=== PATIENT | male | born 1975 | race Caucasian/White ===

== ENCOUNTER 2018-01-11 09:15 | Inpatient (IN) | payer MEDICAID ==
[~2018-01-11] VITALS: Ht 177.8 cm; Wt 122.8 kg
[2018-01-11] MEDS ORDERED: SODIUM CHLORIDE 0.9% 1,000 ML IV ONE (09:45)
[2018-01-11] MEDS ORDERED: SODIUM CHLORIDE 0.9% 1,000ML IVBOLUS ONE (10:00)
[2018-01-11] MEDS ORDERED: ONDANSETRON 2MG/ML, 2ML IVPush ONE (10:00)
[2018-01-11] MEDS ORDERED: FAMOTIDINE 20 MG/2 ML IVP ONE (10:00)
[2018-01-11 10:37] LABS: BASOPHILS # (AUTO) 0.08 x10^3/uL (0-0.1); BASOPHILS % (AUTO) 1 % (0-1); EOSINOPHILS # (AUTO) 0.14 x10^3/uL (0-0.4); EOSINOPHILS % (AUTO) 1 % (1-7); LYMPHOCYTES # (AUTO) 1.55 x10^3/uL (1-3.4); LYMPHOCYTES % (AUTO) 13 % (22-44); MD NO; MEAN CORPUSCULAR HEMOGLOBIN 28.3 pg (27.5-34.5); MEAN CORPUSCULAR VOLUME 83.2 fL (81-97); MEAN PLATELET VOLUME 8.2 fL (7.4-10.4); MONOCYTES # (AUTO) 0.87 x10^3/uL (0.2-0.8); MONOCYTES % (AUTO) 7 % (2-9); NEUTROPHILS # (AUTO) 9.79 x10^3/uL (1.8-6.8); NEUTROPHILS % (AUTO) 79 % (42-75); PLATELET COUNT 337 x10^3/uL (130-400); RED BLOOD COUNT 5.24 x10^6/uL (4.38-5.82); RED CELL DISTRIBUTION WIDTH 14.8 % (9.4-14.8)
[2018-01-11] MEDS ORDERED: MORPHINE SULFATE 4 MG/ML, 1ML ONE ×2 (10:37→12:32)
[2018-01-11] MEDS ORDERED: ONDANSETRON 2MG/ML, 2ML ONE ×4 (10:37→18:10)
[2018-01-11] MEDS ORDERED: FAMOTIDINE 20 MG/2 ML ONE (10:37)
[2018-01-11 10:44] LABS: ALANINE AMINOTRANSFERASE 25 U/L (12-78); ALBUMIN 3.8 g/dL (3.4-5.0); ANION GAP 9 mmol/L (5-15); CALCIUM 9.4 mg/dL (8.5-10.1); CHLORIDE 103 mmol/L (98-107); CREATININE 0.97 mg/dL (0.7-1.3)
[2018-01-11 10:47] LABS: ALKALINE PHOSPHATASE 102 U/L (45-117); BILIRUBIN,TOTAL 0.8 mg/dL (0.2-1.0); TOTAL PROTEIN 8.4 g/dL (6.4-8.2)
[2018-01-11] MEDS: MORPHINE SULFATE 4 MG/ML, 1ML IVPush PRN ×2 (11:07→12:39)
[2018-01-11] MEDS ORDERED: OMNIPAQUE 350 MG/ML, 150 ML BOTTLE ONE (11:39)
[2018-01-11] MEDS ORDERED: METRONIDAZOLE PMX 500MG/100ML 100 ML IV ONE (12:00)
[2018-01-11] MEDS ORDERED: CEFOTETAN PMX 2GM/50ML 50 ML IV ONE (12:30)
[2018-01-11] MEDS ORDERED: ADAL40PE SQ-VACC (12:58)
[2018-01-11] MEDS ORDERED: METRONIDAZOLE PMX 500MG/100ML 100 ML ONE (13:30)
[2018-01-11] MEDS ORDERED: EPINEPHRINE 1 MG/ML, 1ML ONE (14:20)
[2018-01-11] MEDS ORDERED: BUPIVACAINE/PF 0.5% ONE (14:20)
[2018-01-11] MEDS ORDERED: FENTANYL PF 250 MCG/5ML ONE (14:35)
[2018-01-11] MEDS ORDERED: MIDAZOLAM 1 MG/ML, 2ML ONE (14:35)
[2018-01-11] MEDS ORDERED: PROPOFOL 10 MG/ML, 20ML ONE (15:09)
[2018-01-11] MEDS ORDERED: SUCCINYLCHOLINE 20 MG/ML, 10ML ONE (15:09)
[2018-01-11] MEDS ORDERED: ROCURONIUM 10 MG/ML,10ML ONE (15:09)
[2018-01-11] MEDS ORDERED: DEXAMETHASONE 4 MG/ML, 1ML ONE ×2 (15:09)
[2018-01-11] MEDS ORDERED: KETOROLAC 30 MG/1 ML ONE (15:10)
[2018-01-11] MEDS ORDERED: KETAMINE 10 MG/ML, 20ML ONE (15:13)
[2018-01-11] MEDS ORDERED: HYDROmorphone 2 MG/ML, 1ML ONE (15:21)
[2018-01-11] MEDS ORDERED: ACETAMINOPHEN 325 MG TABLET PO PRN ×2 (15:30→20:00)
[2018-01-11] MEDS ORDERED: FENTANYL PF 100 MCG/2ML IV PRN (15:30)
[2018-01-11] MEDS ORDERED: ALBUTEROL SULFATE 2.5 MG/3 ML NPPB PRN (15:30)
[2018-01-11] MEDS ORDERED: HYDROmorphone 1 MG/ML, 1ML IV PRN (15:30)
[2018-01-11] MEDS ORDERED: LABETALOL 5MG/ML, 20ML IV PRN (15:30)
[2018-01-11] MEDS ORDERED: hydrALAzine 20 MG/ML, 1ML IV PRN (15:30)
[2018-01-11] MEDS ORDERED: MEPERIDINE/PF 25MG/0.5ML IVPush PRN (15:30)
[2018-01-11] MEDS ORDERED: PROMETHAZINE 12.5 MG SUPP PR PRN (15:30)
[2018-01-11] MEDS ORDERED: ONDANSETRON 2MG/ML, 2ML IVPush PRN (15:30)
[2018-01-11] MEDS ORDERED: OXYcodone 5 MG/5 ML ORAL.SOL UDC PO PRN (15:30)
[2018-01-11] MEDS ORDERED: NEOSTIGMINE 1 MG/ML, 10ML ONE (16:04)
[2018-01-11] MEDS ORDERED: GLYCOPYRROLATE 0.2MG/1ML, 5ML ONE (16:04)
[2018-01-11] MEDS ORDERED: METOPROLOL 1 MG/ML, 5ML ONE (16:22)
[2018-01-11] MEDS ORDERED: FENTANYL PF 100 MCG/2ML ONE ×2 (17:44→18:10)
[2018-01-11] MEDS ORDERED: ACETAMINOPHEN 650 MG/20.3 ML UDC ONE (18:10)
[2018-01-11] MEDS ORDERED: OXYcodone 5 MG/5 ML ORAL.SOL UDC ONE (18:10)
[2018-01-11] MEDS ORDERED: DIPHENHYDRAMINE 50 MG/ML, 1ML IV PRN (20:00)
[2018-01-11] MEDS: POTASSIUM CHLORIDE 20 MEQ in D5%-0.45% NACL 1,000 ML IV SCH (20:00)
[2018-01-11] MEDS ORDERED: ACETAMINOPHEN 650 MG SUPP PR PRN (20:00)
[2018-01-11] MEDS ORDERED: ONDANSETRON 2MG/ML, 2ML IV PRN (20:00)
[2018-01-11] MEDS ORDERED: DIPHENHYDRAMINE 25 MG CAPSULE PO PRN (20:00)
[2018-01-11] MEDS: LABETALOL 5MG/ML, 20ML IVPush SCH (20:30)
[2018-01-11] MEDS: CEFOTETAN PMX 1GM/50ML 50 ML IVPB SCH (21:00)
[2018-01-11] MEDS: morphine SULFATE 10 MG/ML, 1ML IV PRN ×2 (21:34→23:29)
[2018-01-12] MEDS: METRONIDAZOLE PMX 500MG/100ML 100 ML IVPB SCH ×2 (00:22→08:01)
[2018-01-12] MEDS: KETOROLAC 30 MG/1 ML IV PRN ×2 (00:22→20:24)
[2018-01-12] MEDS: morphine SULFATE 10 MG/ML, 1ML IV PRN ×6 (01:30→20:55)
[2018-01-12] MEDS: CEFOTETAN PMX 1GM/50ML 50 ML IVPB SCH (01:39)
[2018-01-12] MEDS: POTASSIUM CHLORIDE 20 MEQ in D5%-0.45% NACL 1,000 ML IV SCH ×4 (04:05→23:05)
[2018-01-12] MEDS: LABETALOL 5MG/ML, 20ML IVPush SCH ×2 (04:30→12:30)
[2018-01-12 04:34] VITALS: BP 107/67
[2018-01-12 05:45] LABS: ALBUMIN 2.7 g/dL (3.4-5.0); ANION GAP 7 mmol/L (5-15); CALCIUM 8.1 mg/dL (8.5-10.1); CHLORIDE 106 mmol/L (98-107); CREATININE 1.08 mg/dL (0.7-1.3)
[2018-01-12 05:46] LABS: BASOPHILS # (AUTO) 0.03 x10^3/uL (0-0.1); BASOPHILS % (AUTO) 0 % (0-1); EOSINOPHILS % (AUTO) 0 % (1-7); LYMPHOCYTES # (AUTO) 0.84 x10^3/uL (1-3.4); LYMPHOCYTES % (AUTO) 7 % (22-44); MD NO; MEAN CORPUSCULAR HEMOGLOBIN 28.1 pg (27.5-34.5); MEAN CORPUSCULAR HGB CONC 33.2 g/dL (33.2-36.2); MEAN CORPUSCULAR VOLUME 84.7 fL (81-97); MEAN PLATELET VOLUME 8.4 fL (7.4-10.4); MONOCYTES # (AUTO) 0.92 x10^3/uL (0.2-0.8); MONOCYTES % (AUTO) 8 % (2-9); NEUTROPHILS # (AUTO) 10.05 x10^3/uL (1.8-6.8); NEUTROPHILS % (AUTO) 85 % (42-75); PLATELET COUNT 284 x10^3/uL (130-400); RED BLOOD COUNT 4.35 x10^6/uL (4.38-5.82); RED CELL DISTRIBUTION WIDTH 14.7 % (9.4-14.8)
[2018-01-12] MEDS: HEPARIN 5,000 UNITS/ML, 1ML SQ SCH ×2 (06:53→15:04)
[2018-01-12] MEDS ORDERED: MORPHINE SULFATE 4 MG/ML, 1ML ONE ×2 (07:58→11:56)
[2018-01-12 08:16] VITALS: BP 107/61
[2018-01-12 13:51] VITALS: BP 102/65
[2018-01-12] MEDS ORDERED: CEFOTETAN PMX 1GM/50ML 50 ML IVPB SCH (14:30)
[2018-01-12 18:55] VITALS: BP 120/75
[2018-01-12] MEDS ORDERED: LABETALOL 5MG/ML, 20ML IVPush PRN (20:30)
[2018-01-13] MEDS: HEPARIN 5,000 UNITS/ML, 1ML SQ SCH ×3 (00:16→16:12)
[2018-01-13] MEDS: KETOROLAC 30 MG/1 ML IV PRN (04:27)
[2018-01-13 05:35] VITALS: BP 108/71
[2018-01-13] MEDS: POTASSIUM CHLORIDE 20 MEQ in D5%-0.45% NACL 1,000 ML IV SCH ×3 (07:10→23:19)
[2018-01-13 08:00] VITALS: BP 112/74
[2018-01-13 08:12] VITALS: BP 100/64
[2018-01-13 14:30] VITALS: BP 109/74
[2018-01-13] MEDS ORDERED: MAGNESIUM HYDROXIDE 8%, 30ML UDC ONE (16:25)
[2018-01-13] MEDS: MAGNESIUM HYDROXIDE 8%, 30ML UDC PO SCH (16:32)
[2018-01-13 20:46] VITALS: BP 138/96
[2018-01-14 00:35] VITALS: BP 122/82
[2018-01-14 06:30] VITALS: BP 116/82
[2018-01-14] MEDS: POTASSIUM CHLORIDE 20 MEQ in D5%-0.45% NACL 1,000 ML IV SCH (07:25)
[2018-01-14] MEDS: MAGNESIUM HYDROXIDE 8%, 30ML UDC PO SCH (08:07)
[2018-01-14] MEDS: HEPARIN 5,000 UNITS/ML, 1ML SQ SCH ×2 (08:08)
[2018-01-14] MEDS ORDERED: IBUP-1223 PO (10:28)
[2018-01-14] MEDS ORDERED: HYDR-882 PO (10:28)
== END 2018-01-14 12:25 | disposition home or self-care (01) | DRG 416 ==
LOC: ED 12:35 → EDIP 12:36 → ED 12:58 → 4NOR 19:43
PROVIDERS: ADMIT Surgery; ATTEND Surgery
PROC: 0FJ44ZZ Inspection of Gallbladder, Percutaneous Endoscopic Approach (ICD-10-PCS; 2018-01-11)
PROC: 0FT40ZZ Resection of Gallbladder, Open Approach (ICD-10-PCS; principal; 2018-01-11 14:30)
DX: K80.12 Calculus of gallbladder with acute and chronic cholecystitis without obstruction (principal); K76.0 Fatty (change of) liver, not elsewhere classified; K42.9 Umbilical hernia without obstruction or gangrene; Z53.31 Laparoscopic surgical procedure converted to open procedure
CPT/HCPCS: 36415; 74018; 74177; 76700; 80048; 80053; 82040; 83690; 85025; 86850; 86900; 88304; 96361; 96365; 96375; 96376; J0171; J1100; J1170; J1644; J1885; J2250; J2405; J2704; J2710; J3010; J3480; J3490; Q9967; G0260; J0330; J2270; J7030; S0028; S0074

== ENCOUNTER 2018-10-23 17:39 | Emergency (ER) | payer MEDICAID ==
[~2018-10-23] VITALS: Ht 177.8 cm; Wt 104.3 kg
[~2018-10-23 17:39] MED LIST: ADAL40PE SQ-VACC; HYDR-3653 PO; IBUP-1223 PO
[2018-10-23] MEDS ORDERED: ALBUTEROL/IPRATROPIUM 2.5MG/0.5MG, 3 ML NPPB SCH (18:00)
[2018-10-23] MEDS ORDERED: ALBUTEROL/IPRATROPIUM 2.5MG/0.5MG, 3 ML ONE (18:04)
[2018-10-23 18:16] LABS: BASOPHILS # (AUTO) 0.02 x10^3/uL (0-0.1); BASOPHILS % (AUTO) 0 % (0-1); EOSINOPHILS % (AUTO) 0 % (1-7); LYMPHOCYTES % (AUTO) 28 % (22-44); MD NO; MEAN CORPUSCULAR HGB CONC 34.6 g/dL (33.2-36.2); MEAN CORPUSCULAR VOLUME 86.6 fL (81-97); MEAN PLATELET VOLUME 8.5 fL (7.4-10.4); MONOCYTES # (AUTO) 0.33 x10^3/uL (0.2-0.8); MONOCYTES % (AUTO) 8 % (2-9); NEUTROPHILS # (AUTO) 2.45 x10^3/uL (1.8-6.8); NEUTROPHILS % (AUTO) 63 % (42-75); PLATELET COUNT 182 x10^3/uL (130-400); RED BLOOD COUNT 5.09 x10^6/uL (4.38-5.82); RED CELL DISTRIBUTION WIDTH 14.3 % (9.4-14.8)
[2018-10-23 18:25] LABS: ALBUMIN 3.6 g/dL (3.4-5.0); ANION GAP 11 mmol/L (5-15); CALCIUM 6.7 mg/dL (8.5-10.1); CHLORIDE 107 mmol/L (98-107); CREATININE 0.92 mg/dL (0.7-1.3)
[2018-10-23] MEDS ORDERED: AZITHROMYCIN 500 MG in SODIUM CHLORIDE 0.9% 250 ML IV ONE (18:30)
[2018-10-23] MEDS ORDERED: SODIUM CHLORIDE 0.9% 1,000ML IVBOLUS ONE (18:30)
[2018-10-23 21:31] VITALS: BP 99/70
== END 2018-10-23 21:38 | disposition home or self-care (01) ==
LOC: ED 19:35
DX: J18.9 Pneumonia, unspecified organism (principal)
CPT/HCPCS: 36415; 71046; 80048; 82040; 83605; 84145; 85025; 87040; 94640; 96365; 99284; J0456; J7030; J7050; J7620

== ENCOUNTER 2019-11-25 11:02 | Emergency (ER) | payer MEDICAID, OTHER ==
[~2019-11-25] VITALS: Ht 175.3 cm; Wt 114.0 kg
--- NOTE | 2019-11-25 12:50 | NUR ---
US AT BEDSIDE.
[2019-11-25] MEDS ORDERED: LIDOCAINE-MPF 1%, 5ML ONE (13:24)
[2019-11-25] MEDS ORDERED: LIDOCAINE-MPF 1%, 5ML INFIL ONE (13:30)
--- NOTE | 2019-11-25 13:31 | NUR ---
IMANI PIERCE AT BEDSIDE FOR I&D.
[2019-11-25 14:07] VITALS: BP 117/75
--- NOTE | 2019-11-25 14:08 | NUR ---
I&D COMPLETED, WOUND PACKED AND DRESSED BY IMANI PIERCE. PT GIVEN DC INSTRUCTIONS AND SCRIPT, EDUCATED REGARDING RX FOR KEFLEX. PT A&O, RESPS EVEN AND UNLABORED. PT AMB TO DC DESK WITH STEADY GAIT ACCOMPANIED BY S/O.
== END 2019-11-25 14:09 | disposition home or self-care (01) ==
LOC: ED 12:19
DX: L02.412 Cutaneous abscess of left axilla (principal); M06.9 Rheumatoid arthritis, unspecified; Z90.49 Acquired absence of other specified parts of digestive tract
CPT/HCPCS: 10060; 99284

== ENCOUNTER 2019-11-29 01:29 | Emergency (ER) | payer OTHER ==
[~2019-11-29] VITALS: Ht 176.5 cm; Wt 113.0 kg
[2019-11-29 01:34] VITALS: BP 118/72
[2019-11-29] MEDS ORDERED: ZIPRASIDONE 20 MG INJ IM ONE ×2 (02:15→02:30)
== END 2019-11-29 02:45 | disposition home or self-care (01) ==
LOC: ED 02:02
DX: F51.01 Primary insomnia (principal); M06.9 Rheumatoid arthritis, unspecified; Z90.49 Acquired absence of other specified parts of digestive tract
CPT/HCPCS: 96372; 99283; J3486

== ENCOUNTER 2020-08-20 12:22 | Inpatient (IN) | payer OTHER ==
[~2020-08-20] VITALS: Ht 175.3 cm; Wt 107.1 kg
[2020-08-20 13:00] LABS: BASOPHILS # (AUTO) 0.07 x10^3/uL (0-0.1); BASOPHILS % (AUTO) 1 % (0-1); EOSINOPHILS # (AUTO) 0.01 x10^3/uL (0-0.4); EOSINOPHILS % (AUTO) 0 % (1-7); LYMPHOCYTES # (AUTO) 2.09 x10^3/uL (1-3.4); LYMPHOCYTES % (AUTO) 21 % (22-44); MD NO; MEAN CORPUSCULAR HEMOGLOBIN 29.4 pg (27.5-34.5); MEAN CORPUSCULAR HGB CONC 32.5 g/dL (33.2-36.2); MEAN PLATELET VOLUME 7.4 fL (7.4-10.4); MONOCYTES # (AUTO) 0.45 x10^3/uL (0.2-0.8); MONOCYTES % (AUTO) 5 % (2-9); NEUTROPHILS # (AUTO) 7.19 x10^3/uL (1.8-6.8); NEUTROPHILS % (AUTO) 73 % (42-75); PLATELET COUNT 329 x10^3/uL (130-400); RED BLOOD COUNT 4.76 x10^6/uL (4.38-5.82); RED CELL DISTRIBUTION WIDTH 13.8 % (9.4-14.8)
[2020-08-20] MEDS ORDERED: SODIUM CHLORIDE FLUSH 10ML SYR IVF ONE (13:00)
[2020-08-20] MEDS ORDERED: SODIUM CHLORIDE 0.9% 1,000ML IVBOLUS ONE ×2 (13:00→16:30)
[2020-08-20 13:13] LABS: ALANINE AMINOTRANSFERASE 18 U/L (12-78); ALBUMIN 3.6 g/dL (3.4-5.0); ANION GAP 6 mmol/L (5-15); CALCIUM 9.1 mg/dL (8.5-10.1); CHLORIDE 112 mmol/L (98-107); CREATININE 0.99 mg/dL (0.7-1.3)
[2020-08-20 13:15] LABS: ALKALINE PHOSPHATASE 84 U/L (45-117); BILIRUBIN,TOTAL 0.4 mg/dL (0.2-1.0); TOTAL PROTEIN 7.7 g/dL (6.4-8.2)
[2020-08-20] MEDS ORDERED: OMNIPAQUE 350 MG/ML, 100ML BOTTLE ONE (14:46)
--- NOTE | 2020-08-20 15:10 | NUR ---
PER SHANE LYNN NO BLOOD CULTURES NECESSARY.
[2020-08-20] MEDS ORDERED: CEFTRIAXONE PMX 1GM/50ML 50 ML IV ONE (15:30)
[2020-08-20] MEDS ORDERED: METRONIDAZOLE PMX 500MG/100ML 100 ML IV ONE (15:30)
[2020-08-20] MEDS ORDERED: CEFTRIAXONE PMX 1GM/50ML 50 ML ONE (15:33)
[2020-08-20] MEDS ORDERED: METRONIDAZOLE PMX 500MG/100ML 100 ML ONE (15:33)
--- NOTE | 2020-08-20 15:47 | NUR ---
SEPSIS FLOWSHEET STARTED AND ON THE CHART. PT MET SECTION A CRITERIA BUT NOT SECTION A OR B CRITERIA.
[2020-08-20] MEDS ORDERED: ACETAMINOPHEN 325 MG TABLET PO ONE (16:30)
[2020-08-20] MEDS ORDERED: ACETAMINOPHEN 325 MG TABLET ONE (16:45)
[2020-08-20] MEDS ORDERED: ONDANSETRON ODT 4 MG PO PRN (17:30)
[2020-08-20] MEDS ORDERED: DOCUSATE 100 MG CAPSULE PO PRN (17:30)
[2020-08-20] MEDS ORDERED: ACETAMINOPHEN 325 MG TABLET PO PRN (17:30)
[2020-08-20] MEDS ORDERED: hydrALAzine 20 MG/ML, 1ML IVPush PRN (17:30)
[2020-08-20] MEDS ORDERED: ONDANSETRON 2MG/ML, 2ML IVPush PRN (17:30)
[2020-08-20] MEDS ORDERED: BISACODYL 10 MG SUPP PR PRN (17:30)
[2020-08-20] MEDS ORDERED: morphine SULFATE 10 MG/ML, 1ML IVPush PRN (17:30)
[2020-08-20] MEDS ORDERED: LABETALOL 5MG/ML, 20ML IVPush PRN (17:30)
[2020-08-20] MEDS ORDERED: POLYETHYLENE GLYCOL 17 GM PACKET PO PRN (17:30)
[2020-08-20] MEDS: LACTATED RINGERS 1,000 ML IV SCH (17:35)
[2020-08-20] MEDS: CEFTRIAXONE PMX 1GM/50ML 50 ML IV SCH (17:37)
[2020-08-20] MEDS: METRONIDAZOLE PMX 500MG/100ML 100 ML IV SCH (17:37)
--- NOTE | 2020-08-20 17:44 | NUR ---
TASK RN, COVERING MEAL BREAK. PT UP TO BR, STEADY GAIT. FLAGYL COMPLETED, LR HUNG AND INFUSING PER ORDER. VSS/UPDATED IN COMPUTER. PT'S QUESTIONS ANSWERED, UPDATED ON POC. CALL LIGHT WITHIN REACH.
--- NOTE | 2020-08-20 18:13 | NUR ---
REPORT TO RAYRAY DUONG READY FOR TRANSPORT TO FLOOR.
[2020-08-20 18:33] VITALS: BP 121/81
[2020-08-20] MEDS: HYDROcodone/APAP 5/325 TABLET PO PRN (19:56)
[2020-08-20] MEDS ORDERED: ADAL40PE SQ (20:10)
[2020-08-20] MEDS ORDERED: methotrexate (20:11)
[2020-08-21 01:04] VITALS: BP 100/62
[2020-08-21] MEDS: LACTATED RINGERS 1,000 ML IV SCH ×2 (01:43→09:15)
[2020-08-21] MEDS: HYDROcodone/APAP 5/325 TABLET PO PRN ×3 (01:46→18:01)
[2020-08-21] MEDS: METRONIDAZOLE PMX 500MG/100ML 100 ML IV SCH ×3 (02:09→18:01)
[2020-08-21 04:53] LABS: BASOPHILS # (AUTO) 0.04 x10^3/uL (0-0.1); BASOPHILS % (AUTO) 1 % (0-1); EOSINOPHILS # (AUTO) 0.08 x10^3/uL (0-0.4); EOSINOPHILS % (AUTO) 1 % (1-7); LYMPHOCYTES % (AUTO) 44 % (22-44); MD NO; MEAN CORPUSCULAR HEMOGLOBIN 29.1 pg (27.5-34.5); MEAN CORPUSCULAR HGB CONC 32.2 g/dL (33.2-36.2); MEAN PLATELET VOLUME 7.9 fL (7.4-10.4); MONOCYTES # (AUTO) 0.48 x10^3/uL (0.2-0.8); MONOCYTES % (AUTO) 8 % (2-9); NEUTROPHILS # (AUTO) 2.61 x10^3/uL (1.8-6.8); NEUTROPHILS % (AUTO) 46 % (42-75); PLATELET COUNT 249 x10^3/uL (130-400); RED BLOOD COUNT 4.28 x10^6/uL (4.38-5.82); RED CELL DISTRIBUTION WIDTH 14.2 % (9.4-14.8)
[2020-08-21 05:05] LABS: CHLORIDE 114 mmol/L (98-107)
[2020-08-21 05:10] LABS: ANION GAP 6 mmol/L (5-15); CALCIUM 8.7 mg/dL (8.5-10.1); CREATININE 0.84 mg/dL (0.7-1.3)
[2020-08-21 07:29] VITALS: BP 104/55
[2020-08-21 13:42] VITALS: BP 98/60
[2020-08-21 14:37] LABS: HCT (SEDRATE) 37.7 % (39.2-51.8)
[2020-08-21] MEDS: CEFTRIAXONE PMX 1GM/50ML 50 ML IV SCH (16:36)
[2020-08-21 18:37] VITALS: BP 101/67
[2020-08-22 00:53] VITALS: BP 134/86
[2020-08-22] MEDS: METRONIDAZOLE PMX 500MG/100ML 100 ML IV SCH ×2 (01:34→06:05)
[2020-08-22 07:22] VITALS: BP 110/66
[2020-08-22] MEDS: HYDROcodone/APAP 5/325 TABLET PO PRN ×2 (08:36→16:04)
[2020-08-22] MEDS ORDERED: ERTAPENEM 1 GM in SODIUM CHLORIDE 0.9% 50 ML IV SCH (10:00)
[2020-08-22 12:17] VITALS: BP 120/79
[2020-08-22] MEDS ORDERED: ERTA1VIA4 IV ×2 (12:35)
[2020-08-22] MEDS: LACTATED RINGERS 1,000 ML IV SCH (14:00)
== END 2020-08-22 17:00 | disposition home or self-care (01) | DRG 392 ==
LOC: ED 14:26 → EDIP 15:27 → 4NW 18:26
PROVIDERS: ADMIT Internal Medicine; ATTEND Family Medicine
PROC: 02HV33Z Insertion of Infusion Device into Superior Vena Cava, Percutaneous Approach (ICD-10-PCS; principal; 2020-08-22)
PROC: B548ZZA Ultrasonography of Superior Vena Cava, Guidance (ICD-10-PCS; 2020-08-22)
DX: K57.20 Diverticulitis of large intestine with perforation and abscess without bleeding (principal); M06.9 Rheumatoid arthritis, unspecified; L40.50 Arthropathic psoriasis, unspecified; K57.30 Diverticulosis of large intestine without perforation or abscess without bleeding; Z90.49 Acquired absence of other specified parts of digestive tract; Z03.818 Encounter for observation for suspected exposure to other biological agents ruled out
CPT/HCPCS: 36415; 36573; 74177; 80048; 80053; 83690; 83735; 85025; 85651; 86140; 87040; 87635; 96361; 96374; G0378; J0696; J1335; Q9967; C1751; J2270; J7030; J7120

== ENCOUNTER → 2020-09-01 | Outpatient (CLI) | payer OTHER ==
[~2020-09-01] MED LIST changes: +ADAL40PE SQ; +ERTA1VIA4 IV; +OMNIPAQUE 350 MG/ML, 100ML BOTTLE ONE; +methotrexate
== END | disposition home or self-care (01) ==
LOC: RAD 16:15
PROVIDERS: ATTEND Internal Medicine Infectious Disease
DX: K57.80 Diverticulitis of intestine, part unspecified, with perforation and abscess without bleeding (principal); K76.0 Fatty (change of) liver, not elsewhere classified; M47.816 Spondylosis without myelopathy or radiculopathy, lumbar region
CPT/HCPCS: 74177; Q9967

== ENCOUNTER 2020-10-30 15:17 | Outpatient (CLI) | payer OTHER ==
[~2020-10-30 15:17] MED LIST changes: -OMNIPAQUE 350 MG/ML, 100ML BOTTLE ONE
[2020-10-30] MEDS ORDERED: OMNIPAQUE 350 MG/ML, 100ML BOTTLE ONE (16:03)
== END 2020-10-30 23:59 | disposition home or self-care (01) ==
LOC: RAD 15:17
PROVIDERS: ATTEND Nurse Practitioner
DX: K76.0 Fatty (change of) liver, not elsewhere classified (principal); K57.20 Diverticulitis of large intestine with perforation and abscess without bleeding
CPT/HCPCS: 74177; Q9967

== ENCOUNTER 2020-12-22 09:26 | Inpatient (IN) | payer OTHER ==
[~2020-12-22] VITALS: Ht 175.3 cm; Wt 93.8 kg
[2020-12-22] MEDS ORDERED: CIPR500T4 PO (15:48)
[2020-12-22] MEDS ORDERED: METR500T PO (15:48)
[2020-12-22 16:35] LABS: BASOPHILS % (AUTO) 1 % (0-1); EOSINOPHILS % (AUTO) 1 % (1-7); LYMPHOCYTES % (AUTO) 28 % (22-44); MEAN CORPUSCULAR HEMOGLOBIN 29.9 pg (27.5-34.5); MEAN CORPUSCULAR HGB CONC 34.2 g/dL (33.2-36.2); MEAN PLATELET VOLUME 7.7 fL (7.4-10.4); MONOCYTES % (AUTO) 7 % (2-9); NEUTROPHILS % (AUTO) 64 % (42-75); PLATELET COUNT 342 x10^3/uL (130-400); RED BLOOD COUNT 4.78 x10^6/uL (4.38-5.82); RED CELL DISTRIBUTION WIDTH 14.1 % (9.4-14.8)
[2020-12-22 16:41] LABS: ALANINE AMINOTRANSFERASE 22 U/L (12-78); ALBUMIN 3.4 g/dL (3.4-5.0); ANION GAP 4 mmol/L (5-15); CHLORIDE 109 mmol/L (98-107)
[2020-12-22 16:43] LABS: ALKALINE PHOSPHATASE 66 U/L (45-117); BILIRUBIN,TOTAL 0.4 mg/dL (0.2-1.0); TOTAL PROTEIN 7.5 g/dL (6.4-8.2)
[2020-12-22 16:55] LABS: MD NO
[2020-12-24 10:28] VITALS: BP 98/63
[2020-12-24] MEDS ORDERED: LACTATED RINGERS 1,000 ML IV SCH (10:30)
[2020-12-24] MEDS ORDERED: CHLORHEXIDINE 15 ML UDC MM ONE (10:30)
[2020-12-24] MEDS ORDERED: MIDAZOLAM 1 MG/ML, 2ML ONE (14:32)
[2020-12-24] MEDS ORDERED: FENTANYL PF 250 MCG/5ML ONE ×2 (14:32→16:09)
[2020-12-24] MEDS ORDERED: METRONIDAZOLE PMX 500MG/100ML 100 ML ONE (14:40)
[2020-12-24] MEDS ORDERED: ONDANSETRON 2MG/ML, 2ML ONE (14:52)
[2020-12-24] MEDS ORDERED: DEXAMETHASONE 4 MG/ML, 5ML ONE (14:52)
[2020-12-24] MEDS ORDERED: EPHEDRINE 50 MG/ML, 1ML ONE (14:52)
[2020-12-24] MEDS ORDERED: CEFAZOLIN 1,000 MG ONE (14:52)
[2020-12-24] MEDS ORDERED: NEOSTIGMINE 1 MG/ML, 10ML ONE (14:52)
[2020-12-24] MEDS ORDERED: LIDOCAINE-MPF 1%, 5ML ONE (14:52)
[2020-12-24] MEDS ORDERED: PROPOFOL 10 MG/ML, 20ML ONE (14:52)
[2020-12-24] MEDS ORDERED: GLYCOPYRROLATE 0.2MG/1ML, 5ML ONE (14:52)
[2020-12-24] MEDS ORDERED: KETOROLAC 30 MG/1 ML ONE (14:52)
[2020-12-24] MEDS ORDERED: ROCURONIUM 10MG/ML,5ML ONE (14:52)
[2020-12-24] MEDS ORDERED: INDOCYANINE GREEN 25 MG VIAL ONE (16:11)
[2020-12-24] MEDS ORDERED: HYDROmorphone 1 MG/ML, 1ML INJ ONE ×2 (17:22→18:00)
[2020-12-24] MEDS ORDERED: FENTANYL PF 100 MCG/2ML ONE ×2 (17:22→18:00)
[2020-12-24] MEDS ORDERED: OXYcodone 5 MG/5 ML ORAL.SOL UDC ONE (17:23)
[2020-12-24] MEDS ORDERED: ACETAMINOPHEN 100 ML IVPB PRN ×2 (17:30→19:00)
[2020-12-24] MEDS ORDERED: HALOPERIDOL 5 MG/ML IVPush PRN (17:30)
[2020-12-24] MEDS ORDERED: LORazepam 2 MG/ML, 1ML IVPush PRN (17:30)
[2020-12-24] MEDS ORDERED: DIPHENHYDRAMINE 50 MG/ML, 1ML IVPush PRN (17:30)
[2020-12-24] MEDS ORDERED: DEXAMETHASONE 4 MG/ML, 1ML IVPush PRN (17:30)
[2020-12-24] MEDS ORDERED: TRAZODONE 50MG TABLET PO PRN (17:30)
[2020-12-24] MEDS ORDERED: LORazepam 0.5MG TABLET PO PRN (17:30)
[2020-12-24] MEDS ORDERED: DIPHENHYDRAMINE 25 MG CAPSULE PO PRN (17:30)
[2020-12-24] MEDS ORDERED: MORPHINE SULFATE 4 MG/ML, 1ML IVPush PRN (17:30)
[2020-12-24] MEDS ORDERED: CALCIUM CARBONATE 500 MG TAB.CHEW PO PRN (17:30)
[2020-12-24] MEDS: FENTANYL PF 100 MCG/2ML IV PRN ×3 (17:31→18:01)
[2020-12-24] MEDS: HYDROmorphone 1 MG/ML, 1ML INJ IVPush PRN ×4 (17:45→18:10)
[2020-12-24] MEDS ORDERED: PROMETHAZINE 25 MG/ML, 1ML IVPush PRN (18:00)
[2020-12-24] MEDS ORDERED: ACETAMINOPHEN 325 MG TABLET PO PRN (18:00)
[2020-12-24] MEDS ORDERED: OXYcodone 5 MG/5 ML ORAL.SOL UDC PO PRN (18:00)
[2020-12-24] MEDS ORDERED: ONDANSETRON 2MG/ML, 2ML IVPush PRN (18:00)
[2020-12-24] MEDS ORDERED: METHOCARBAMOL 1,000 MG in DEXTROSE 5% 100 ML IV PRN (18:00)
[2020-12-24] MEDS ORDERED: LABETALOL 5MG/ML, 20ML IV PRN (18:00)
[2020-12-24] MEDS ORDERED: MEPERIDINE/PF 25MG/0.5ML IVPush PRN (18:00)
[2020-12-24] MEDS: ACETAMINOPHEN 500 MG TABLET PO SCH (18:52)
[2020-12-24] MEDS ORDERED: D5%-0.45NACL+KCL 20MEQ 1,000 ML IV SCH (19:04)
[2020-12-24 20:22] VITALS: BP 128/75
[2020-12-24] MEDS: OXYcodone IR 5MG TABLET PO PRN (20:45)
[2020-12-24] MEDS: PIPERACILLIN/TAZO/PMX 3.375GM 50 ML IV SCH (20:47)
[2020-12-25 00:21] VITALS: BP 135/84
[2020-12-25] MEDS: ACETAMINOPHEN 500 MG TABLET PO SCH ×4 (00:57→20:51)
[2020-12-25] MEDS: ONDANSETRON 2MG/ML, 2ML IVPush PRN (00:57)
[2020-12-25] MEDS: OXYcodone IR 5MG TABLET PO PRN ×7 (00:58→23:46)
[2020-12-25 02:58] LABS: BASOPHILS % (AUTO) 0 % (0-1); EOSINOPHILS % (AUTO) 0 % (1-7); LYMPHOCYTES % (AUTO) 2 % (22-44); MEAN CORPUSCULAR HEMOGLOBIN 29.4 pg (27.5-34.5); MEAN CORPUSCULAR HGB CONC 33.5 g/dL (33.2-36.2); MEAN PLATELET VOLUME 7.7 fL (7.4-10.4); MONOCYTES % (AUTO) 4 % (2-9); NEUTROPHILS % (AUTO) 94 % (42-75); PLATELET COUNT 325 x10^3/uL (130-400); RED BLOOD COUNT 4.51 x10^6/uL (4.38-5.82); RED CELL DISTRIBUTION WIDTH 14.2 % (9.4-14.8)
[2020-12-25] MEDS: PIPERACILLIN/TAZO/PMX 3.375GM 50 ML IV SCH ×4 (02:58→20:51)
[2020-12-25 03:05] LABS: ALBUMIN 3.2 g/dL (3.4-5.0); ANION GAP 7 mmol/L (5-15); CALCIUM 8.5 mg/dL (8.5-10.1); CHLORIDE 109 mmol/L (98-107); CREATININE 1.17 mg/dL (0.7-1.3)
[2020-12-25 03:25] LABS: MD SCAN
[2020-12-25 03:53] VITALS: BP 120/76
[2020-12-25 06:35] VITALS: BP 121/74
[2020-12-25] MEDS ORDERED: chlorPROMAZINE 10MG TABLET PO PRN (09:00)
[2020-12-25 12:20] VITALS: BP 119/75
[2020-12-25] MEDS: ENOXAPARIN 40 MG/0.4 ML SQ SCH (12:28)
[2020-12-25 19:04] VITALS: BP 109/71
[2020-12-26 00:37] VITALS: BP 101/64
[2020-12-26] MEDS: ACETAMINOPHEN 500 MG TABLET PO SCH ×4 (02:12→20:38)
[2020-12-26] MEDS: OXYcodone IR 5MG TABLET PO PRN ×6 (02:45→23:59)
[2020-12-26] MEDS: PIPERACILLIN/TAZO/PMX 3.375GM 50 ML IV SCH ×4 (02:46→20:59)
[2020-12-26 05:28] LABS: BASOPHILS % (AUTO) 0 % (0-1); EOSINOPHILS % (AUTO) 0 % (1-7); LYMPHOCYTES % (AUTO) 17 % (22-44); MEAN CORPUSCULAR HEMOGLOBIN 29.6 pg (27.5-34.5); MEAN CORPUSCULAR HGB CONC 33.3 g/dL (33.2-36.2); MEAN PLATELET VOLUME 7.8 fL (7.4-10.4); MONOCYTES % (AUTO) 8 % (2-9); NEUTROPHILS % (AUTO) 75 % (42-75); PLATELET COUNT 281 x10^3/uL (130-400); RED BLOOD COUNT 3.94 x10^6/uL (4.38-5.82); RED CELL DISTRIBUTION WIDTH 14.4 % (9.4-14.8)
[2020-12-26 05:33] LABS: CHLORIDE 108 mmol/L (98-107); MD NO
[2020-12-26 05:38] LABS: ALBUMIN 2.9 g/dL (3.4-5.0); ANION GAP 5 mmol/L (5-15); CALCIUM 8.6 mg/dL (8.5-10.1); CREATININE 0.91 mg/dL (0.7-1.3)
[2020-12-26 07:07] VITALS: BP 105/67
[2020-12-26 12:08] VITALS: BP 101/66
[2020-12-26] MEDS: ENOXAPARIN 40 MG/0.4 ML SQ SCH (12:16)
[2020-12-26 21:21] VITALS: BP 94/55
[2020-12-27 01:53] VITALS: BP 99/65
[2020-12-27 02:39] LABS: BASOPHILS % (AUTO) 1 % (0-1); EOSINOPHILS % (AUTO) 2 % (1-7); LYMPHOCYTES % (AUTO) 22 % (22-44); MEAN CORPUSCULAR HEMOGLOBIN 30.1 pg (27.5-34.5); MEAN CORPUSCULAR HGB CONC 33.9 g/dL (33.2-36.2); MEAN PLATELET VOLUME 7.3 fL (7.4-10.4); MONOCYTES % (AUTO) 9 % (2-9); NEUTROPHILS % (AUTO) 67 % (42-75); PLATELET COUNT 254 x10^3/uL (130-400); RED BLOOD COUNT 3.58 x10^6/uL (4.38-5.82); RED CELL DISTRIBUTION WIDTH 14.1 % (9.4-14.8)
[2020-12-27 02:42] LABS: MD NO
[2020-12-27 02:45] LABS: ALBUMIN 2.6 g/dL (3.4-5.0); ANION GAP 4 mmol/L (5-15); CALCIUM 8.5 mg/dL (8.5-10.1); CHLORIDE 107 mmol/L (98-107); CREATININE 0.76 mg/dL (0.7-1.3)
[2020-12-27] MEDS: PIPERACILLIN/TAZO/PMX 3.375GM 50 ML IV SCH ×4 (02:54→21:59)
[2020-12-27] MEDS: ACETAMINOPHEN 500 MG TABLET PO SCH ×4 (02:55→19:32)
[2020-12-27 07:49] VITALS: BP 110/73
[2020-12-27] MEDS: ENOXAPARIN 40 MG/0.4 ML SQ SCH (12:57)
[2020-12-27 14:26] VITALS: BP 99/63
[2020-12-27 18:36] VITALS: BP 107/65
[2020-12-28] MEDS: ACETAMINOPHEN 500 MG TABLET PO SCH ×3 (01:20→14:00)
[2020-12-28] MEDS: OXYcodone IR 5MG TABLET PO PRN ×3 (01:24→13:12)
[2020-12-28 01:26] VITALS: BP 128/84
[2020-12-28] MEDS: PIPERACILLIN/TAZO/PMX 3.375GM 50 ML IV SCH ×2 (03:09→11:02)
[2020-12-28] MEDS: ONDANSETRON 2MG/ML, 2ML IVPush PRN (03:57)
[2020-12-28 08:07] VITALS: BP 118/79
[2020-12-28] MEDS ORDERED: AMOX1TAB64 PO (11:22)
[2020-12-28] MEDS ORDERED: OXYC1TAB14 PO (11:22)
[2020-12-28] MEDS: ENOXAPARIN 40 MG/0.4 ML SQ SCH (12:02)
[2020-12-28 13:42] VITALS: BP 112/80
== END 2020-12-28 14:38 | disposition home or self-care (01) | DRG 332 ==
LOC: EDSTATUS 15:30 → ORIP 12-24 09:50 → EDSTATUS 12-24 13:00 → 4NE 12-24 19:00
PROVIDERS: ADMIT Surgery; ATTEND Surgery
PROC: 8E0W4CZ Robotic Assisted Procedure of Trunk Region, Percutaneous Endoscopic Approach (ICD-10-PCS; 2020-12-24)
PROC: 0DBP4ZZ Excision of Rectum, Percutaneous Endoscopic Approach (ICD-10-PCS; principal; 2020-12-24 13:00)
DX: K57.20 Diverticulitis of large intestine with perforation and abscess without bleeding (principal); K65.1 Peritoneal abscess; Z20.822 Contact with and (suspected) exposure to COVID-19
CPT/HCPCS: 36415; 80048; 80053; 82040; 85025; 86850; 86900; 88307; 93005; G0378; J0690; J1100; J1170; J1650; J1885; J2250; J2405; J2543; J2704; J2710; J3010; J2060; J2800; J3480; J7120; U0003